=== PATIENT | male | born 1960 | race Caucasian/White ===

== ENCOUNTER 2020-12-27 08:33 | Emergency (ER) | payer MEDICARE, OTHER ==
[2020-12-27] MEDS ORDERED: MOBIC15 MG PO (10:50)
== END 2020-12-27 11:03 | disposition home or self-care (01) ==
LOC: ER1 08:33
DX: S50.02XA Contusion of left elbow, initial encounter (principal); S40.022A Contusion of left upper arm, initial encounter; W22.8XXA Striking against or struck by other objects, initial encounter; Y92.410 Unspecified street and highway as the place of occurrence of the external cause
CPT/HCPCS: 73060; 73080; 99283

== ENCOUNTER 2022-05-23 22:29 | Inpatient (IN) | payer MEDICARE, OTHER ==
[~2022-05-23] VITALS: Ht 182.9 cm; Wt 67.3 kg
[~2022-05-23 22:29] MED LIST: MOBIC15 MG PO
[2022-05-23 22:53] LABS: RED BLOOD COUNT 4.08 M/UL (4.20-5.50); WHITE BLOOD COUNT 6.5 K/UL (4.5-11.0)
[2022-05-23 23:11] LABS: BUN/CREATININE RATIO 20 (0-10)
[2022-05-24 02:54] LABS: HEMOGLOBIN 11.5 gm/dl (14.0-17.5); RED BLOOD COUNT 3.96 M/UL (4.20-5.50)
[2022-05-24 02:58] LABS: WHITE BLOOD COUNT 9.2 K/UL (4.5-11.0)
[2022-05-24 03:16] LABS: BUN/CREATININE RATIO 21 (0-10)
[2022-05-24] MEDS ORDERED: ARISTADA SQ (11:03)
[2022-05-24] MEDS ORDERED: METFORMIN HCL500 MG PO (11:04)
[2022-05-24] MEDS ORDERED: LISINOPRIL20 MG PO (11:04)
[2022-05-25 03:31] LABS: HEMOGLOBIN 11.3 gm/dl (14.0-17.5); RED BLOOD COUNT 3.87 M/UL (4.20-5.50); WHITE BLOOD COUNT 8.7 K/UL (4.5-11.0)
[2022-05-25 04:43] LABS: BUN/CREATININE RATIO 22 (0-10)
--- NOTE | 2022-05-25 13:34 | NUR ---
PATIENT NORMALLY TAKES ARISTADA A MONTHLY INJECTION. SINCE IT WAS UNAVAILABLE AT [facility]OSPITAL [facility] THE PATIENT WAS TOLD TO FILL THE MED AT THE LOCAL PHARMACY AND BRING IT HERE. THE PHARMACY WOULD NEED TO BE NOTIFIED AND THEN IT CAN BE GIVEN. THE FAMILY ARRIVED AT THE HOSPITAL WITH THE INJECTION AND THE PHARMACY WAS CALLED. THEY INFORMED ME i WOULD NEED A ORDER FROM DR KELLEY TO GIVE THE PATIENT THAT MED. SO I CALLED DR KELLEY INFORMED ME THAT THIS SITUATION WAS NOT A REASON TO CALL HIM. HE ALSO WASNTED TO KNOW WHY I HAD CALLED HIM FOR THIS. HE WOULD NOT ALLOW ME TO EXPLAIN THAT I NEEDED HIM TO GIVE THE OK AND HUNG UP.
[2022-05-26 04:48] LABS: HEMOGLOBIN 9.6 gm/dl (14.0-17.5); WHITE BLOOD COUNT 6.7 K/UL (4.5-11.0)
[2022-05-26 05:01] LABS: BUN/CREATININE RATIO 27 (0-10)
[2022-05-26 05:10] LABS: RED BLOOD COUNT 3.28 M/UL (4.20-5.50)
[2022-05-27 03:42] LABS: HEMOGLOBIN 9.3 gm/dl (14.0-17.5); RED BLOOD COUNT 3.21 M/UL (4.20-5.50); WHITE BLOOD COUNT 6.1 K/UL (4.5-11.0)
[2022-05-27 04:09] LABS: BUN/CREATININE RATIO 22 (0-10)
[2022-05-27] MEDS ORDERED: ELIQUIS 2.5 MG2.5 MG GT (08:45)
[2022-05-27] MEDS ORDERED: HYDROCODON-ACE1 EAC6 PO (08:45)
[2022-05-27] MEDS ORDERED: ELIQUIS 2.5 MG2.5 MG PO ×2 (09:00→09:06)
[2022-05-27] MEDS ORDERED: FERROUS SULFAT325 M2 PO (09:07)
== END 2022-05-27 16:01 | disposition home health service (06) | DRG 481 ==
LOC: ER1 22:29 → M/S 23:44 → CDU 23:44 → M/S 05-24 00:42
PROVIDERS: Family Medicine; Internal Medicine; Orthopaedic Surgery; ADMIT Internal Medicine
PROC: 0QS704Z Reposition Left Upper Femur with Internal Fixation Device, Open Approach (ICD-10-PCS; principal; 2022-05-24 18:00)
DX: S72.142A Displaced intertrochanteric fracture of left femur, initial encounter for closed fracture (principal); E87.1 Hypo-osmolality and hyponatremia; Z20.822 Contact with and (suspected) exposure to COVID-19; D50.9 Iron deficiency anemia, unspecified; F41.9 Anxiety disorder, unspecified; K21.9 Gastro-esophageal reflux disease without esophagitis; I10 Essential (primary) hypertension; E11.9 Type 2 diabetes mellitus without complications; F17.210 Nicotine dependence, cigarettes, uncomplicated; W01.0XXA Fall on same level from slipping, tripping and stumbling without subsequent striking against object, initial encounter; Y92.009 Unspecified place in unspecified non-institutional (private) residence as the place of occurrence of the external cause; Z83.3 Family history of diabetes mellitus
CPT/HCPCS: 36415; 71045; 73502; 73552; 76000; 80048; 80053; 82550; 82553; 82607; 82746; 82962; 83036; 83540; 83550; 83735; 84100; 84439; 84443; 84484; 85025; 85027; 85045; 85610; 86850; 86900; 86901; 93005; 96374; 96375; 97116; 97162; 97166; 97530; 99285; C1713; G0378; J0690; J1100; J1170; J1756; J1885; J2001; J2250; J2270; J2405; J2704; J2795; J3010